=== PATIENT | female | born 1975 | race Caucasian/White ===

== ENCOUNTER 2016-11-11 | Outpatient (CLI) | payer MEDICAID | END 2016-11-11 13:36 | disposition critical access hospital (66) | DX: R40.20 Unspecified coma (principal) | CPT/HCPCS: A0425; A0427 ==

== ENCOUNTER 2016-11-11 13:54 | Inpatient (IN) | payer MEDICAID ==
[2016-11-11] MEDS ORDERED: SODIUM CHLORIDE 0.9% 1,000 ML IV ONE ×5 (14:00→18:48)
[2016-11-11] MEDS ORDERED: ACETAMINOPHEN 325 MG TABLET PO PRN (16:14)
[2016-11-11] MEDS ORDERED: SODIUM CHLORIDE FLUSH 0.9% 10 ML SYRINGE IVP PRN (16:14)
[2016-11-11] MEDS ORDERED: ONDANSETRON 4 MG/2 ML VIAL IVP PRN (16:14)
[2016-11-11] MEDS ORDERED: IPRATROPIUM/ALBUTEROL 3 ML NEB INH PRN (16:14)
[2016-11-11] MEDS ORDERED: SODIUM CHLORIDE 0.9% 1,000 ML IV SCH (17:00)
[2016-11-11] MEDS ORDERED: PROPOFOL 1000 MG/100 ML 100 ML IV SCH (17:00)
[2016-11-11] MEDS: SODIUM BICARBONATE 100 MEQ in DEXTROSE 5% 1,000 ML IV SCH (18:31)
[2016-11-11] MEDS: DOPamine 800 MG/500 ML 500 ML IV SCH (21:55)
[2016-11-11] MEDS ORDERED: CALCIUM GLUCONATE 2,000 MG in SODIUM CHLORIDE 0.9% 100ML 100 ML IV ONE (23:00)
[2016-11-11] MEDS: CHLORHEXIDINE GLUCONATE 15 ML UDC PO SCH (23:25)
[2016-11-11] MEDS: SODIUM CHLORIDE FLUSH 0.9% 10 ML SYRINGE IVP SCH (23:26)
[2016-11-12] MEDS ORDERED: SODIUM CHLORIDE 0.9% 1,000 ML IV ONE (01:57)
[2016-11-12] MEDS: SODIUM BICARBONATE 100 MEQ in DEXTROSE 5% 1,000 ML IV SCH (05:14)
[2016-11-12] MEDS: DOPamine 800 MG/500 ML 500 ML IV SCH (06:00)
[2016-11-12] MEDS ORDERED: PANTOPRAZOLE 40 MG VIAL IVP SCH (07:00)
[2016-11-12] MEDS: SODIUM CHLORIDE FLUSH 0.9% 10 ML SYRINGE IVP SCH (07:32)
[2016-11-12] MEDS ORDERED: ENOXAPARIN 40 MG/0.4 ML SYRINGE SUBQ SCH (09:00)
[2016-11-12] MEDS: CHLORHEXIDINE GLUCONATE 15 ML UDC PO SCH (09:54)
== END 2016-11-12 10:20 | disposition expired | DRG 917 ==
PROC: 5A1935Z Respiratory Ventilation, Less than 24 Consecutive Hours (ICD-10-PCS; principal; 2016-11-11)
DX: T65.94XA Toxic effect of unspecified substance, undetermined, initial encounter (principal); R40.20 Unspecified coma; E87.4 Mixed disorder of acid-base balance; N17.9 Acute kidney failure, unspecified; R57.9 Shock, unspecified; I46.9 Cardiac arrest, cause unspecified; Y92.009 Unspecified place in unspecified non-institutional (private) residence as the place of occurrence of the external cause; D72.825 Bandemia; R74.0 Nonspecific elevation of levels of transaminase and lactic acid dehydrogenase [LDH]; F32.9 Major depressive disorder, single episode, unspecified; G40.909 Epilepsy, unspecified, not intractable, without status epilepticus; F41.9 Anxiety disorder, unspecified; M54.30 Sciatica, unspecified side; G89.29 Other chronic pain; Z66 Do not resuscitate; Z91.81 History of falling; Z86.711 Personal history of pulmonary embolism; Z87.891 Personal history of nicotine dependence; Z91.5 Personal history of self-harm; Z78.1 Physical restraint status